=== PATIENT | female | born 1955 | race Caucasian/White ===

== ENCOUNTER → 2016-09-26 | Outpatient (CLI) | payer OTHER | LOC: MAMO 11:20 | DX: Z12.31 Encounter for screening mammogram for malignant neoplasm of breast (principal); Z78.0 Asymptomatic menopausal state | CPT/HCPCS: G0202 ==

== ENCOUNTER → 2021-11-23 | Outpatient (CLI) | payer OTHER ==
[~2021-11-23] MED LIST: AMLODIPINE BESY10 MG PO; ASPIRIN EC81 MG PO; B-122500 MCG SL; LIPITOR20 MG PO; LISINOPRIL-HCT1 EAC2 PO; METOPROLOL SUC100 MG PO
== END ==
LOC: KOH-I 14:30
DX: G45.9 Transient cerebral ischemic attack, unspecified (principal); I73.9 Peripheral vascular disease, unspecified
CPT/HCPCS: 70551; 93922; 93925